=== PATIENT | male | born 1940 | race Caucasian/White ===

== ENCOUNTER → 2017-08-08 | Outpatient (CLI) | payer OTHER, MEDICARE ==
[2013-07-25 01:50] VITALS: BP 178/89
--- NOTE | 2017-08-08 09:54 | CT ---
CT head without contrast Indication: Dizziness. Shaking. Seizures. Comparison: None available. Technique: Axial images from the skullbase to the vertex without contrast. Coronal and sagittal refor mats provided. Findings: There is large peripherally calcified lesion abutting the frontal bone and causing mass eff ect on the frontoparietal lobes. This measures 4.9 x 4.0 x 2.8 cm on sagittal image 18 and coronal im age 10 (AP, trans, CC). While this compresses the adjacent brain, there is no marked vasogenic edema. There is mild underlying atrophy. Very subtle increased lucency of the inner table on coronal image 10 and compare to the contralateral side suggested. Remaining brain parenchyma shows no hemorrhage or extra-axial fluid collection. No abnormal area of h ypoattenuation to suggest infarction seen. Bone windows shows no other osseous abnormality with clear paranasal sinuses and mastoid air cells as above. Impression: 1. Large lesion abutting the frontal bone and frontoparietal lobe in the left cerebral hemisphere wit h peripheral calcifications and central soft tissue density could reflect sequela of old hemorrhage o r could represent neoplasia such as from a large meningioma. This would be an atypical appearance. MR brain with and without contrast recommended. 2. No other acute abnormality. THE AVAILABILITY OF THE REPORT AND FINDINGS WERE COMMUNICATED TO Dr. Arana by Dr. Lerma on August 08, 2017 Timed called 9:53 a.m. Reported By:
== END | disposition home or self-care (01) | DRG 149 ==
LOC: RAD 08:51
PROVIDERS: ATTEND Internal Medicine
DX: R42 Dizziness and giddiness (principal); R55 Syncope and collapse; G93.89 Other specified disorders of brain
CPT/HCPCS: 70450

== ENCOUNTER → 2017-08-18 | Outpatient (CLI) | payer OTHER, MEDICARE ==
[2013-07-25 01:50] VITALS: BP 178/89
[2017-08-18 14:15] LABS: CREATININE 1.68 mg/dL (0.70-1.30)
== END ==
LOC: RAD 13:37
PROVIDERS: ATTEND Internal Medicine
DX: R42 Dizziness and giddiness (principal); R90.89 Other abnormal findings on diagnostic imaging of central nervous system; R55 Syncope and collapse
CPT/HCPCS: 36415; 82565; 84520

== ENCOUNTER 2017-11-29 21:11 | Emergency (ER) | payer OTHER, MEDICARE ==
[2017-11-29 21:30] VITALS: BP 175/79; BMI 34.7
[2017-11-29] MEDS ORDERED: SOLU-Medrol 125 MG VIAL IVP ONE (21:32)
--- NOTE | 2017-11-29 21:38 | DR.GENAD ---
HPI - PCP Primary Care Physician: NOAH - Complaint/Symptoms Chief Complaint Doctors Comments: EMS states they were called for a possible seizure when they got there the patient was unresponsive and his glucose was low and they gave him an amp of D50 IV and the patient became alert and responsive and transported to the ER. Patient evaluated in ER with glucose of 78. Patient denies chest pain, cold or cough. Family states he ate three meals today and he took 61 units of insulin tonight. States patient had brain tumor removed in [place] in 2016. States he is a patient of Dr. Arana and her usually gives himself his insulin. Patient denies cold, cough, fever, chills, nasuea or vomiting. Chief Complaint:: EMS CALLED OUT TO POSSIBLE SIEZURE. ON ARRIVAL EMS PATIENT NOT RESPONDING TO VOICE. BLOODE SUGAR WAS CHECKED BY EMS BLOOD GLUCOSE READ LOW. D50 GIVEN IVP PATIENT BECAME AWAKE AND ALERT. UPON ARRIVAL TO ED PATINET AWAKE ALERT ORIENTED. - Nurses notes reviewed Nurses Notes Review: Yes - Source History Provided: Patient - Mode of Arrival Mode of Arrival: EMS - Timing Onset of Chief Complaint: 11/29/17 Came on: Suddenly - Duration Duration: Constant How lon Duration: Hours - Location Location: patient unresponsive at home - Severity Severity: Moderate - Modifying Factors Worsens:: nothing Improves:: D50W PMH - PMH Past Medical History: Yes Past Medical History: Arthritis, Diabetes, Hypertension, Kidney Stones Past Surgical History: Yes Surgical History: Appendectomy, Ortho Surgery Past Surgical History Comment: BRAIN TUMOR REMOVED 10/03 - Family History History of Family Medical Conditions: Yes Family Medical History: Cancer, [place], Hypertension - Social History Do you use any recreational Drugs:: No - infectious screening Have you traveled outside the country in the last 6 months?: No ROS - Review of Systems Constitutional: No Symptoms Reported, Weakness. negative: See HPI, Chills, Diaphoresis, Fever, Malaise, Irritable, Fatigue, Loss of Appetite, Other Eyes: No Symptoms Reported ENTM: No Symptoms Reported Respiratoy: No Symptoms Reported. negative: See HPI, Productive Cough, Non- Productive Cough, Moist Cough, Dry Cough, Hacking Cough, Barking Cough, Brassy Cough, Orthopnea, Short of Breath, Stridor, Wheezing, Hemoptysis, Other Cardiovascular: No Symptoms Reported. negative: See HPI, Chest Pain, Edema, Palpitations, Syncope, Cyanosis, Skin Mottling, Other Gastrointestinal/Abdominal: No Symptoms Reported. negative: See HPI, Abdominal Pain, Constipation, Diarrhea, Nausea, Vomiting, Food Intolerance, Other Genitourinary: No Symptoms Reported Neurological: No Symptoms Reported. negative: See HPI, Anxiety, Depressed, Emotional Problems, Headache, Numbness, Paresthesia, Pre-existing Deficit, Seizure, Tingling, Tremors, Weakness, Dizziness, Problems Walking, Speech Problem, Other Musculoskeletal: No Symptoms Reported, Left, Back Integumentary: No Symptoms Reported. negative: See HPI, Change in Color, Change in Hair/Nails, Dryness, Lesions, Lumps, Rash, Itching, Wound, Bruises, Juandice, Other Hematologic/Lymphatic: No Symptoms Reported Endocrine: No Symptoms Reported Psychiatric: No Symptoms Reported. negative: See HPI, Anxiety, Depression, Hallucinations, Excessive crying, Suicidal, Other PE - Vital Signs Vitals: Temperature 97.8 F Pulse Rate 68 Respiratory Rate 22 Blood Pressure 175/79 O2 Sat by Pulse Oximetry 98 - General Limitations: No Limitations General Appearance: Alert, In No Apparent Distress - Head Head Exam: Normal Inspection, Atraumatic, Normocephalic (small papules lower lip ) - Eyes Eye exam: Normal Appearance, PERRL, EOMI. negative: Scleral Icterus, Conjunctival Injection, Nystagmus, Miosis, Mydrasis, Periorbital Swelling, Periorbital Tenderness, Other - ENT ENT Exam: Normal Exam, Normal Oropharynx, Normal External Ear Exam, Mucous Membranes Moist, TM's Normal Bilaterally External Ear Exam: Normal External Inspection TM/Canal Exam: Bilateral Normal Nose Exam: Normal Nose Exam Mouth Exam: Normal Inspection. negative: Drooling, Trismus, Lip Swelling, Tongue Elevation, Tongue Swelling, Laceration, Other Throat Exam: Normal Inspection. negative: Tonsillar Erythema, Tonsillomegaly, Tonsillar Exudate, R Peritonsillar Mass, L Peritonsillar Mass, Muffled Voice, Other - Neck Neck Exam: Normal Inspection, Full ROM, Trachea Midline. negative: Tenderness, Meningismus, Lymphadenopathy, Thyromegaly, Other - Chest Chest Inspection: Normal Inspection, Symmetric Chest Wall Rise. negative: Tenderness, Rash, Abscess, Other - Respiratory Respiratory Exam: Normal Lung Sounds Bilat Respiratory Exam: Bilateral Clear to Auscultation - Cardiovascular Cardiovascular Exam: Regular Rate, Normal Rhythm, Normal Heart Sounds - Abdominal Exam Abdominal Exam: Normal Inspection, Normal Bowel Sounds, Soft. negative: Distention, Tenderness, Guarding, Rebound, Rigidity, Dimnished Bowel Sounds, Hyperactive Bowel Sounds, Hypoactive Bowel Sounds, Organomegaly, Trauma, Incision, Ascites, Mass, Bruit, Pulsatile Mass, Hernia, Other Abdominal Tenderness: negative: RUQ, RLQ, LUQ, LLQ, Epigastrium, Suprapubic, Diffuse, Mild, Moderate, Severe, Other - Extremities Extremities Exam: Normal Inspection, Full ROM, Tenderness, Normal Capillary Refill - Back Back Exam: Normal Inspection, Full ROM - Neurologic Neurological Exam: Alert, Oriented X3, CN II-XII Intact, Reflexes Normal. negative: Normal Gait (gait not tested) - Psychiatric Psychiatric Exam: Normal Affect, Normal Mood - Skin Skin Exam: Warm, Dry, Intact, Normal Color ROR - Labs Reviewed Laboratory Results Reviewed?: Yes (all labs and x-ray results reviewed and discussed with patient) Result Diagrams: 11/29/17 21:40 11/29/17 21:40 Laboratory: WBC 14.4 X10^3/uL (3.6-10.0) H 11/29/17 21:40 RBC 4.20 X10^6/uL (4.7-6.0) L 11/29/17 21:40 Hgb 11.5 g/dL (13.5-18.0) L 11/29/17 21:40 Hct 34.5 % (42.0-54.0) L 11/29/17 21:40 MCV 82.3 fL (80.0-100.0) 11/29/17 21:40 MCH 27.3 pg (27.0-34.0) 11/29/17 21:40 MCHC 33.2 g/dL (33.0-35.0) 11/29/17 21:40 RDW 15.3 % (11.6-16.5) 11/29/17 21:40 Plt Count 317 X10^3/uL (150.0-450.0) 11/29/17 21:40 MPV 8.8 fL (7.4-11.0) 11/29/17 21:40 Neut % 71.3 % (42.0-75.0) 11/29/17 21:40 Lymph % 18.0 % (21.0-51.0) L 11/29/17 21:40 [place] % 8.9 % (0.0-13.0) 11/29/17 21:40 Eos % 0.4 % (0.9-2.9) L 11/29/17 21:40 Baso % 1.4 % (0.2-1.0) H 11/29/17 21:40 Neut # 10.3 x10^3/uL (2.2-4.8) H 11/29/17 21:40 Lymph # 2.6 X10^3/uL (1.3-2.9) 11/29/17 21:40 [place] # 1.3 x10^3/uL (0.3-0.8) H 11/29/17 21:40 Eos # 0.1 x10^3/uL (0.0-0.2) 11/29/17 21:40 Baso # 0.2 X10^3/uL (0.0-0.1) H 11/29/17 21:40 Absolute Nucleated RBC 0.0 /100WBC 11/29/17 21:40 INR Target Range - 11/29/17 21:40 INR 0.95 (0.8-1.3) 11/29/17 21:40 PTT 36.0 SECONDS (22.9-36.5) 11/29/17 21:40 PTT Comment - 11/29/17 21:40 Sodium 140 mmol/L (136-145) 11/29/17 21:40 Corrected Sodium TNP 11/29/17 21:40 Potassium 3.4 mmol/L (3.5-5.1) L 11/29/17 21:40 Chloride 105 mmol/L (98-107) 11/29/17 21:40 Carbon Dioxide 27.7 mmol/L (21-32) 11/29/17 21:40 BUN 17 mg/dL (7-18) 11/29/17 21:40 Creatinine 1.42 mg/dL (0.70-1.30) H 11/29/17 21:40 Est GFR (MDRD) Af Amer > 60 (>60) 11/29/17 21:40 Est GFR (MDRD) Non-Af 51 (>60) L 11/29/17 21:40 Glucose 63 mg/dL (65-99) L 11/29/17 21:40 POC Glucose (mg/dL) 107 mg/dL (65-99) H 11/29/17 23:12 Calcium 9.6 mg/dL (8.5-10.1) 11/29/17 21:40 Corrected Calcium 10.3 mg/dL (8.5-10.1) H 11/29/17 21:40 Magnesium 1.5 mg/dL (1.7-2.9) L 11/29/17 21:40 Total Bilirubin 0.20 mg/dL (0.2-1.0) 11/29/17 21:40 AST 14 Units/L (15-37) L 11/29/17 21:40 ALT 21 Units/L (12-78) 11/29/17 21:40 Alkaline Phosphatase 83 Units/L (46-116) 11/29/17 21:40 Creatine Kinase 19 Units/L (39-308) L 11/29/17 21:40 CK-MB (CK-2) < 1.0 ng/mL (0-4.0) 11/29/17 21:40 CK/CKMB % Calc 5.3 % (<4) 11/29/17 21:40 Troponin I < 0.02 ng/mL (0-1.5) 11/29/17 21:40 Total Protein 6.6 g/dL (6.4-8.2) 11/29/17 21:40 Albumin 3.1 g/dL (3.4-5.0) L 11/29/17 21:40 Globulin 3.5 g/dL (2.5-4.5) 11/29/17 21:40 Albumin/Globulin Ratio 0.9 Ratio (1.1-2.1) L 11/29/17 21:40 - XRAY XRAY Interpreted by: Radiologist (CXR: questionable infiltrates in infrahilar egion on the right) - EKG Rate: 62 [place]: Normal Rhythm: NSR Block: None Hypertrophy: None ST: Nonsp - Diagnosis Discharge Problem: Hypoglycemia, Hypoglycemia due to insulin, Hypokalemia, Chronic kidney disease (CKD) Pneumonia Qualifiers: Laterality: right Lung location: unspecified part of lung - Discharge Plan Disposition: 01 HOME, SELF-CARE Condition: Stable Prescriptions: Levofloxacin [LEVAQUIN TAB 500 MG *] 500 mg PO Q24H #10 tab - Follow ups/Referrals Follow ups/Referrals: Jaylen Arana [Primary Care Provider] - 3 days - Instructions Instructions: Community-Acquired Pneumonia, Adult, Pire-[id number], Hypoglycemia, [id number], Hypokalemia, Potassium Content of Foods, Chronic Kidney Disease, [id number] Additional Instructions: Patient to hold insulin today and check glucose every 3-4 hours until stable. Patient to followup with local doctor for insulin adjustment.
[2017-11-29] MEDS ORDERED: SOLU-Medrol 125 MG VIAL ONE (21:41)
[2017-11-29] MEDS ORDERED: D5 1/2 NS 1000 ML 1,000 ML IV ONE (21:42)
[2017-11-29 21:52] LABS: BASOPHILS # (AUTO) 0.2 X10^3/uL (0.0-0.1); BASOPHILS % (AUTO) 1.4 % (0.2-1.0); EOSINOPHILS # (AUTO) 0.1 x10^3/uL (0.0-0.2); EOSINOPHILS % (AUTO) 0.4 % (0.9-2.9); HEMATOCRIT 34.5 % (42.0-54.0); HEMOGLOBIN 11.5 g/dL (13.5-18.0); LYMPHOCYTES # (AUTO) 2.6 X10^3/uL (1.3-2.9); MEAN CORPUSCULAR HEMOGLOBIN 27.3 pg (27.0-34.0); MEAN CORPUSCULAR HGB CONC 33.2 g/dL (33.0-35.0); MEAN CORPUSCULAR VOLUME 82.3 fL (80.0-100.0); MEAN PLATELET VOLUME 8.8 fL (7.4-11.0); MONOCYTES # (AUTO) 1.3 x10^3/uL (0.3-0.8); MONOCYTES % (AUTO) 8.9 % (0.0-13.0); NEUTROPHILS # (AUTO) 10.3 x10^3/uL (2.2-4.8); NEUTROPHILS % (AUTO) 71.3 % (42.0-75.0); PLATELET COUNT 317 X10^3/uL (150.0-450.0); RED CELL DISTRIBUTION WIDTH 15.3 % (11.6-16.5); WHITE BLOOD COUNT 14.4 X10^3/uL (3.6-10.0)
[2017-11-29] MEDS ORDERED: D5 1/2 NS 1000 ML 1,000 ML IV SCH (22:00)
[2017-11-29] MEDS ORDERED: D5 1/2 NS + KCL 20 MEQ/L 1,000 ML IV SCH (22:00)
[2017-11-29 22:11] LABS: BLOOD UREA NITROGEN 17 mg/dL (7-18); CALCIUM 9.6 mg/dL (8.5-10.1); CARBON DIOXIDE 27.7 mmol/L (21-32); CHLORIDE 105 mmol/L (98-107); CREATININE 1.42 mg/dL (0.70-1.30); SODIUM 140 mmol/L (136-145); TROPONIN I < 0.02 ng/mL (0-1.5); eGFR BLACK RACES > 60 (>60); eGFR NON BLACK RACES 51 (>60)
--- NOTE | 2017-11-29 22:15 | RAD ---
History: Chest pain. Study: Single-view chest. Comparison: None. Findings: The trachea is midline. The cardiac silhouette is at the upper limits of normal in size. T here are questionable infiltrates in the infrahilar region on the right. There is no pleural effusion or pneumothorax. The bony thorax is grossly unremarkable. Impression: Questionable infiltrates in the infrahilar region on the right. Follow-up after appropria te clinical treatment is recommended to exclude an underlying mass. Reported By:
[2017-11-29 22:25] LABS: ALANINE AMINOTRANSFERASE 21 Units/L (12-78); ALBUMIN 3.1 g/dL (3.4-5.0); ALKALINE PHOSPHATASE 83 Units/L (46-116); ASPARTATE AMINO TRANSFERASE 14 Units/L (15-37); CKMB % 5.3 % (<4); COR CA(FOR HYPOALB) 10.3 mg/dL (8.5-10.1); CREATINE KINASE 19 Units/L (39-308); CREATINE KINASE MB < 1.0 ng/mL (0-4.0); MAGNESIUM 1.5 mg/dL (1.7-2.9); TOTAL PROTEIN 6.6 g/dL (6.4-8.2)
[2017-11-29] MEDS ORDERED: ROCEPHIN VIAL 1 GM 1 GM in NS 100 ML IV + SPIKE MINIBAG* 100 ML IV ONE (23:45)
[2017-11-29] MEDS ORDERED: LEVAQUIN TAB 750 MG PO SCH (23:45)
[2017-11-29] MEDS ORDERED: ROCEPHIN VIAL 1 GM ONE (23:51)
[2017-11-29] MEDS ORDERED: NS 100 ML IV 100 ML IV ONE (23:51)
[2017-11-30] MEDS ORDERED: LEVAQUIN TAB 250 MG ONE (00:22)
== END 2017-11-30 00:35 | disposition home or self-care (01) ==
LOC: ER 21:11
DX: N18.9 Chronic kidney disease, unspecified (principal); E16.2 Hypoglycemia, unspecified; E87.6 Hypokalemia
CPT/HCPCS: 36415; 71045; 80053; 82550; 82553; 83735; 84484; 85025; 85610; 85730; 93005; 96365; 96367; 96374; 96375; 99283; A4222; J0696; J2930; J7042

== ENCOUNTER 2017-12-04 14:57 | Emergency (ER) | payer OTHER, MEDICARE ==
[2017-12-04 15:06] VITALS: BP 135/75; BMI 34.4
--- NOTE | 2017-12-04 15:12 | DR.GENAD ---
HPI - PCP Primary Care Physician: mayur - Complaint/Symptoms Chief Complaint Doctors Comments: [facility]. 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 He is on all four classes of antihypertensive medication in addition to hydrochlorthiazide plus keppra for seizure control s/p surgery. He states that he sometimes do not take the the HCTZ. BP on evaluation 135/75. Chief Complaint:: patient stated his bp was high at home when his physical therapy was working with him 170/86 heartt rate was 114. nurse at [facility] said to come to the er. has had one dizzy spell this morning - Source History Provided: Patient - Mode of Arrival Mode of Arrival: Ambulatory - Timing Onset of Chief Complaint: 12/04/17 PMH - PMH Past Medical History: Yes Past Medical History: Arthritis, Diabetes, Hypertension, Kidney Stones Past Surgical History: Yes Surgical History: Appendectomy, Ortho Surgery, Other Past Surgical History Comment: had a tumor removed from his [place] october 16 - Family History History of Family Medical Conditions: Yes Family Medical History: Cancer, [place], Hypertension - Social History Does patient currently use any type of tobacco product: No Have you used tobacco products in the last 12 months: No Type of Tobacco Use: None Does any household member use tobacco: No Do you use any recreational Drugs:: No Lives With: Family Lives Where: Home - infectious screening In the last 2 months have you had wt loss of >10#?: NO Have you had fever, night sweats or hemotysis?: No Have you traveled outside the country in the last 6 months?: No Isolation: Standard ROS - Review of Systems Eyes: No Symptoms Reported ENTM: No Symptoms Reported Respiratoy: No Symptoms Reported Cardiovascular: No Symptoms Reported Gastrointestinal/Abdominal: No Symptoms Reported Genitourinary: No Symptoms Reported Neurological: No Symptoms Reported Musculoskeletal: No Symptoms Reported Integumentary: No Symptoms Reported Hematologic/Lymphatic: No Symptoms Reported Endocrine: No Symptoms Reported Psychiatric: No Symptoms Reported All Other Systems: Reviewed and Negative PE - Vital Signs Vitals: Temperature 97.6 F Pulse Rate 91 Respiratory Rate 16 Blood Pressure 135/75 O2 Sat by Pulse Oximetry 99 - Head Head Exam: Normal Inspection, Atraumatic - Eyes Eye exam: Normal Appearance, PERRL, EOMI - ENT ENT Exam: Normal Exam External Ear Exam: Normal External Inspection TM/Canal Exam: Bilateral Normal Nose Exam: Normal Nose Exam Mouth Exam: Normal Inspection Throat Exam: Normal Inspection - Neck Neck Exam: Normal Inspection - Chest Chest Inspection: Normal Inspection - Respiratory Respiratory Exam: Normal Lung Sounds Bilat Respiratory Exam: Bilateral Clear to Auscultation - Cardiovascular Cardiovascular Exam: Regular Rate, Normal Rhythm - Abdominal Exam Abdominal Exam: Normal Inspection, Normal Bowel Sounds Abdominal Tenderness: negative: RUQ, RLQ, LUQ, LLQ, Epigastrium, Suprapubic, Diffuse, Mild, Moderate, Severe, Other - Extremities Extremities Exam: Normal Inspection - Back Back Exam: Normal Inspection, Full ROM - Neurologic Neurological Exam: Alert, Oriented X3, CN II-XII Intact - Psychiatric Psychiatric Exam: Normal Affect - Skin Skin Exam: Warm, Dry, Intact Course - Reevaluation 1st: Unchanged - Education/Counseling Education/Counseling: Education, Counseling Educated On: Treatment, Diagnosis, Needs for Follow Up - Diagnosis Discharge Problem: Hypertension associated with diabetes - Discharge Plan Condition: Stable - Follow ups/Referrals Follow ups/Referrals: Jaylen Arana [Primary Care Provider] - 3 days - Instructions
== END 2017-12-04 16:08 | disposition home or self-care (01) ==
LOC: ER 15:11
DX: I10 Essential (primary) hypertension (principal); E11.9 Type 2 diabetes mellitus without complications
CPT/HCPCS: 99281; 99282